=== PATIENT | female | born 1935 | race Caucasian/White ===

== ENCOUNTER 2021-02-20 08:42 | Inpatient (IN) | payer MEDICARE ==
[~2021-02-20] VITALS: Ht 157.5 cm; Wt 61.2 kg
[2021-02-20 09:25] LABS: HEMOGLOBIN 13.9 gm/dl (12.3-15.3); RED BLOOD COUNT 5.01 M/UL (4.00-5.10); WHITE BLOOD COUNT 4.3 K/UL (4.5-11.0)
[2021-02-20 09:55] LABS: BUN/CREATININE RATIO 27 (0-10)
[2021-02-20] MEDS ORDERED: LEVOTHYROXINE75 MCG PO (12:16)
[2021-02-20] MEDS ORDERED: PRAVASTATIN SOD40 MG PO (12:17)
[2021-02-20] MEDS ORDERED: AMLODIPINE BESY10 MG PO (12:17)
[2021-02-20] MEDS ORDERED: HYDRALAZINE HCL50 MG PO (12:17)
[2021-02-20] MEDS ORDERED: DIOVAN 80 MG TA80 MG PO (12:18)
[2021-02-21 02:09] LABS: HEMOGLOBIN 13.6 gm/dl (12.3-15.3); RED BLOOD COUNT 4.97 M/UL (4.00-5.10)
[2021-02-21 02:11] LABS: WHITE BLOOD COUNT 2.3 K/UL (4.5-11.0)
[2021-02-21 02:29] LABS: BUN/CREATININE RATIO 34 (0-10)
[2021-02-22 05:02] LABS: HEMOGLOBIN 13.5 gm/dl (12.3-15.3); RED BLOOD COUNT 4.95 M/UL (4.00-5.10)
[2021-02-22 05:07] LABS: WHITE BLOOD COUNT 3.9 K/UL (4.5-11.0)
[2021-02-22 05:22] LABS: BUN/CREATININE RATIO 54 (0-10)
--- NOTE | 2021-02-24 00:40 | NUR ---
ASKED PATIENT IF SHE WOULD LIKE ANYTHING ELSE FOR PAIN. SHE STATED SHE FEELS BETTER NOW AND DOES NOT NEED ANYTHING ELSE. WILL CONTINUE TO REASSESS NEED FOR PAIN MEDICATION.
[2021-02-24 07:47] LABS: HEMOGLOBIN 12.8 gm/dl (12.3-15.3); RED BLOOD COUNT 4.98 M/UL (4.00-5.10)
[2021-02-24 08:07] LABS: WHITE BLOOD COUNT 7.3 K/UL (4.5-11.0)
[2021-02-24 08:16] LABS: BUN/CREATININE RATIO 43 (0-10)
--- NOTE | 2021-02-24 18:27 | NUR ---
I HAVE CALLED THE OUTSIDE DELIVERER TO REQUEST A SITTER AT [employer] [address] BECUASE THE PATIENT KEEPS TAKING HER OXYGEN OFF AND HER O2 GETS DOWN INTO THE 70S I WAS INSTRUCTED THAT WE DO NOT HAVE THE STAFF FOR A SITTER, TO CALL MY CHARGE NURSE IN WHICH I DID AND ASKED IF SHE COULD HELP AND SHE CAME AROUND 1630 PATIENT STILL IS TAKING HER OXYGEN OFF EVEN AFTER MULTIPLE TRIPS TO THE ROOM AND PUTTING IT BACK ON HER AND EDUCATING HER ON THE RISKS OF NOT WEARING IT. AWARE.
[2021-02-25 14:49] LABS: HEMOGLOBIN 14.2 gm/dl (12.3-15.3); RED BLOOD COUNT 5.14 M/UL (4.00-5.10)
[2021-02-25 15:02] LABS: WHITE BLOOD COUNT 9.2 K/UL (4.5-11.0)
--- NOTE | 2021-02-25 21:31 | NUR ---
Spoke with [employer] T[employer]or ([place]). Confirmed daughter's approval to come stay at hospital in room with patient. Patient has poor appetite, experiencing confusion, high fall risk and is currently covid positive. I feel it is in best interest of the patient to have family involved. [employer].
--- NOTE | 2021-02-25 21:35 | NUR ---
Contacted daughter from [place] of approval of stay with patient. Daughter was vaccinated on 10/19/20. Daughter states she will arrive on 02/26/21 in the evening time to stay. Notified line service supervisor and updated as well at this time.
[2021-02-26 05:15] LABS: BUN/CREATININE RATIO 36 (0-10)
[2021-02-27 03:29] LABS: BUN/CREATININE RATIO 31 (0-10)
[2021-02-28 04:13] LABS: BUN/CREATININE RATIO 37 (0-10)
[2021-03-02 02:38] LABS: HEMOGLOBIN 12.8 gm/dl (12.3-15.3); RED BLOOD COUNT 4.68 M/UL (4.00-5.10); WHITE BLOOD COUNT 8.8 K/UL (4.5-11.0)
[2021-03-02 03:35] LABS: BUN/CREATININE RATIO 47 (0-10)
--- NOTE | 2021-03-04 00:09 | NUR ---
PATIENT IS CONFUSED AND PULLING OUT LINES AND HITTING STAFF. FAMILY MEMBER AT BEDSIDE AND TRYING TO CALM PATIENT. NO SUCESS. NOTIFIED DR. BECKWITH OF PTS CHANGE ORDERS RECIEVED.
[2021-03-05 12:06] LABS: BUN/CREATININE RATIO 25 (0-10)
[2021-03-05 12:59] LABS: BUN/CREATININE RATIO 25 (0-10)
--- NOTE | 2021-03-06 02:17 | NUR ---
PT CONFUSED AND PULLING OXYGEN OUT OF HER NOSE. SHE IS ATTEMPTING TO GET UP. FAMILY AT BEDSIDE. GAVE ALISHA PEREZ TO HELP.
[2021-03-06 03:11] LABS: HEMOGLOBIN 12.8 gm/dl (12.3-15.3); RED BLOOD COUNT 4.67 M/UL (4.00-5.10); WHITE BLOOD COUNT 11.1 K/UL (4.5-11.0)
[2021-03-06 03:35] LABS: BUN/CREATININE RATIO 27 (0-10)
[2021-03-07 03:33] LABS: BUN/CREATININE RATIO 20 (0-10)
[2021-03-08 02:40] LABS: HEMOGLOBIN 11.8 gm/dl (12.3-15.3); RED BLOOD COUNT 4.31 M/UL (4.00-5.10); WHITE BLOOD COUNT 11.4 K/UL (4.5-11.0)
[2021-03-08 03:01] LABS: BUN/CREATININE RATIO 22 (0-10)
[2021-03-09 04:06] LABS: HEMOGLOBIN 9.9 gm/dl (12.3-15.3); WHITE BLOOD COUNT 9.8 K/UL (4.5-11.0)
[2021-03-09 04:11] LABS: RED BLOOD COUNT 3.79 M/UL (4.00-5.10)
[2021-03-09 04:39] LABS: BUN/CREATININE RATIO 21 (0-10)
[2021-03-10 04:00] LABS: HEMOGLOBIN 10.1 gm/dl (12.3-15.3); RED BLOOD COUNT 3.85 M/UL (4.00-5.10); WHITE BLOOD COUNT 10.1 K/UL (4.5-11.0)
[2021-03-10 04:19] LABS: BUN/CREATININE RATIO 22 (0-10)
[2021-03-11] MEDS ORDERED: DOCUSATE SODIU100 MG PO (14:53)
[2021-03-11] MEDS ORDERED: MYCOSTATIN100000 UTS PO ×2 (14:53→15:12)
[2021-03-11] MEDS ORDERED: NYSTOP60 GM EXT (14:53)
[2021-03-11] MEDS ORDERED: DIFLUCAN 100 M100 MG PO (14:53)
[2021-03-11] MEDS ORDERED: ASPIRIN EC81 MG PO (14:53)
[2021-03-11] MEDS ORDERED: ROXANOL SOLN20 MG/ML SL (18:19)
[2021-03-11] MEDS ORDERED: ATIVAN0.5 MG PO (18:20)
--- NOTE | 2021-03-11 22:04 | NUR ---
PT SENT WITH [facility] ON HOSPICE, PHYSCIAL TIME OF LEAVING 2200. PT MOVED ONTO STRETCHER WITH EASE, PT WAS COMFORTABLE AND HAD NO COMPLAINTS. FAMILY LEFT WITH PT, FOLLOWING BEHIND EMS. FAMILY HAD REQUESTED PT BE TAKEN OFF MONITOR ABOUT HALF AN HOUR PROIR TO EMS ARRIVING. LAST OXYGEN SATURATION ON A PORTABLE PULSE OX WAS 80% ON 15L NON REBREATHER, HEART RATE 88. LAST TAKEN BLOOD PRESSURE WAS 140/47 MAP 70. CALLED HELLEN WITH HOSPICE SERVICES AND GAVE HER AN UPDATE, LET HER KNOW THE PATIENT HAD LEFT THE BUILDING AND WAS ON THIER WAY HOME. HOSPICE TO FOLLOW UP WITH PATIENT AND FAMILY.
== END 2021-03-11 22:00 | DRG 177 ==
LOC: ER1 08:42 → CDU 11:36 → MED SURG 4 11:36 → PROG CARE 11:36 → MED SURG 4 14:03 → PROG CARE 02-26 15:02
PROVIDERS: Internal Medicine; Physician Assistant; ADMIT Internal Medicine Infectious Disease
PROC: 3E0333Z Introduction of Anti-inflammatory into Peripheral Vein, Percutaneous Approach (ICD-10-PCS; principal; 2021-02-20)
PROC: XW033E5 Introduction of Remdesivir Anti-infective into Peripheral Vein, Percutaneous Approach, New Technology Group 5 (ICD-10-PCS; 2021-02-20)
PROC: 8E0ZXY6 Isolation (ICD-10-PCS; 2021-02-20)
PROC: 5A0935A Assistance with Respiratory Ventilation, Less than 24 Consecutive Hours, High Flow/Velocity Cannula (ICD-10-PCS; 2021-02-22)
PROC: 5A09457 Assistance with Respiratory Ventilation, 24-96 Consecutive Hours, Continuous Positive Airway Pressure (ICD-10-PCS; 2021-02-27)
PROC: 5A0955A Assistance with Respiratory Ventilation, Greater than 96 Consecutive Hours, High Flow/Velocity Cannula (ICD-10-PCS; 2021-03-01)
DX: U07.1 COVID-19 (principal); J12.82 Pneumonia due to coronavirus disease 2019; J96.01 Acute respiratory failure with hypoxia; J15.9 Unspecified bacterial pneumonia; E43 Unspecified severe protein-calorie malnutrition; G93.41 Metabolic encephalopathy; B37.49 Other urogenital candidiasis; B37.89 Other sites of candidiasis; I25.10 Atherosclerotic heart disease of native coronary artery without angina pectoris; E03.9 Hypothyroidism, unspecified; R00.1 Bradycardia, unspecified; E78.5 Hyperlipidemia, unspecified; K21.9 Gastro-esophageal reflux disease without esophagitis; B37.2 Candidiasis of skin and nail; I10 Essential (primary) hypertension; E83.42 Hypomagnesemia; Z51.5 Encounter for palliative care; I44.1 Atrioventricular block, second degree; Z79.82 Long term (current) use of aspirin; Z95.1 Presence of aortocoronary bypass graft; Z90.49 Acquired absence of other specified parts of digestive tract; Z98.42 Cataract extraction status, left eye; Z98.41 Cataract extraction status, right eye; Z88.0 Allergy status to penicillin; Z81.1 Family history of alcohol abuse and dependence; Z82.49 Family history of ischemic heart disease and other diseases of the circulatory system; Z80.1 Family history of malignant neoplasm of trachea, bronchus and lung; Z68.27 Body mass index [BMI] 27.0-27.9, adult
CPT/HCPCS: 0240U; 36415; 36600; 71045; 80048; 80053; 80202; 82140; 82550; 82553; 82728; 82803; 83605; 83615; 83735; 83874; 83880; 84132; 84439; 84443; 84484; 85025; 85027; 85379; 85610; 86140; 87040; 87081; 92526; 92610; 93005; 94640; 94660; 94664; 94760; 97110; 97110-GP-CQ; 97162; 97164; 97167; 97530; 97530-GP-CQ; 99285; J0461; J1100; J1335; J1650; J1885; J2405; J3370; J3475; J3480; J3486; J7030; J7070; J7120; J7121